=== PATIENT | female | born 1945 | race Caucasian/White ===

== ENCOUNTER 2021-05-29 12:59 | Outpatient (REF) | payer MEDICARE, SELFPAY ==
--- NOTE | ~2021-05-29 | MR_ITS ---
EXAMINATION: MR CERVICAL SPINE AND LUMBAR SPINE WITHOUT CONTRAST CLINICAL INFORMATION: Spinal stenosis. Chronic low back pain without sciatica. Status post fusion. COMPARISON: None TECHNIQUE: Multiplanar multisequence MRI of the cervical spine and lumbar spine were performed without contrast. FINDINGS: Cervical spine: The cervical vertebral bodies maintain normal heights and alignment. There is mild grade 1 anterolisthesis of C4 on C5. Significant disc height loss is seen at C3-C4, C5-C6, and C6-C7. No bone marrow edema is seen. Intramedullary T2 hyperintensity seen within the cord at the C3-C4 level likely representing myelomalacia noting right-sided cord volume loss. The imaged intracranial contents are unremarkable. The extraspinal soft tissues are within normal limits. C2-C3: No spinal canal stenosis. Bilateral facet ankylosis. No neural foraminal stenosis. C3-C4: Disc osteophyte complex asymmetric to the right with ligamentum flavum infolding resulting in severe spinal canal stenosis with significant cord deformity. Uncovertebral hypertrophy and severe left facet arthropathy results in severe bilateral neural foraminal stenosis. C4-C5: Disc osteophyte complex with ligamentum flavum infolding resulting in severe spinal canal stenosis with cord deformity. Uncovertebral hypertrophy with severe left facet arthropathy results in severe right and moderate to severe left neural foraminal stenosis. C5-C6: Disc osteophyte complex causing mild to moderate spinal canal stenosis. Uncovertebral hypertrophy and facet arthropathy resulting in severe bilateral neural foraminal stenosis. C6-C7: Disc osteophyte complex causing mild spinal canal stenosis. Bilateral uncovertebral hypertrophy with mild facet arthropathy resulting in severe bilateral neural foraminal stenosis. C7-T1: Disc osteophyte complex. Bilateral facet arthropathy. No spinal canal or neural foraminal stenosis. Lumbar spine: The lumbar vertebral bodies maintain normal heights. There is grade 2 anterolisthesis of L4 on L5 measuring 10 mm. There is severe disc height loss at L4-L5 with chronic fatty degenerative endplate changes and superimposed marrow edema. Moderate to severe disc height loss is seen throughout the visualized thoracic and lumbar levels. Minimal amount of endplate edema seen at T9-T10 and T10-T11 and at L5-S1. The distal spinal cord signal appears normal. The conus medullaris terminates at the L1-L2 level. The extraspinal soft tissues are within normal limits. T9-T10: Disc bulging. Moderate to severe left and mild right neural foraminal stenosis. No spinal canal stenosis. T10-T11: Disc bulging causing mild to moderate spinal canal stenosis and moderate bilateral neural foraminal stenosis. T11-T12: Disc bulging with right subarticular protrusion and facet arthropathy resulting in severe spinal canal stenosis with cord deformity. Severe right and moderate to severe left neural foraminal stenosis. T12-L1: Disc bulging with severe facet arthropathy. Mild spinal canal stenosis. Moderate bilateral neural foraminal stenosis. L1-L2: Disc bulging with ligamentum flavum infolding, facet arthropathy, and prominent dorsal epidural fat causing severe spinal canal stenosis with deformity of the conus medullaris. No definite intramedullary signal abnormality. Severe bilateral neural foraminal stenosis. L2-L3: Disc bulging with severe facet arthropathy. No spinal canal stenosis. Moderate to severe left and [id number] right neural foraminal stenosis. L3-L4: Disc bulging asymmetric to the left with severe facet arthropathy. Left subarticular stenosis. Severe left and moderate to severe right neural foraminal stenosis. L4-L5: Grade 1 anterolisthesis with posterior unroofing of the disc. Diffuse disc bulging with severe facet arthropathy. Severe spinal canal stenosis with significant thecal sac compression. Severe neural foraminal stenosis with severe compression of both exiting L4 nerve roots. L5-S1: Diffuse disc bulging with central protrusion. Sequela of prior left hemilaminectomy. Moderate to severe spinal canal stenosis with compression of the traversing S1 nerve roots as well as the exiting L5 nerve roots. MR/MR cervical spine wo con IMPRESSION: Cervical spine: Severe multilevel degenerative spondylosis. Severe narrowing of the spinal canal with cord deformity at C3-C4 with chronic appearing myelomalacia. Severe spinal canal stenosis with cord deformity also seen at the C4-C5 level. Further advanced spondylosis is detailed above. Diffusely low T1 bone marrow signal. This is nonspecific and possible etiologies include stimulated red marrow (as can be seen with smoking, altitude, chronic anemia, etc.), chronic infection, and early phases of myelodysplastic/myeloproliferative disorders. Consider correlation with clinical history and, potentially, a CBC with blood smear. Lumbar spine: Severe spondylosis throughout the visualized thoracic spine and in the lumbar spine. At L1-L2 there is severe spinal canal stenosis with deformity of the conus medullaris but no intramedullary edema. At T11-T12 there is severe spinal canal stenosis with cord deformity. At L4-L5 there is grade 2 anterolisthesis and severe spinal canal stenosis with significant compression of the thecal sac as well as the exiting nerve roots. At L5-S1 there is moderate to severe spinal canal stenosis and compression of the traversing S1 nerve roots as well as the exiting L5 nerve roots. Additional spondylosis including high-grade neural foraminal narrowing is detailed above. Vertebral body marrow signal is diffusely hypointense on the T1 sequence suggesting marrow infiltration, similar to the cervical spine.
== END 2021-05-29 13:00 | disposition home or self-care (01) ==
LOC: HO.MRI 12:59
PROVIDERS: Visit Provider Family Medicine
DX: M48.02 Spinal stenosis, cervical region (principal); M48.07 Spinal stenosis, lumbosacral region; G62.9 Polyneuropathy, unspecified; G89.29 Other chronic pain; M54.50 Low back pain, unspecified
CPT/HCPCS: 72141; 72148